=== PATIENT | female | born 1950 | race African-American/Black ===

== ENCOUNTER 2018-11-02 21:26 | Emergency (ER) | payer MEDICARE, OTHER ==
[~2018-11-02] VITALS: Ht 167.6 cm; Wt 72.6 kg
[2018-11-02] MEDS ORDERED: NKM (21:49)
--- NOTE | 2018-11-02 22:16 | Emergency Room Report ---
History of Present Illness General Chief Complaint: Lower Extremity Injury Source: Patient, Family Member Present Illness HPI Patient presents with left knee pain. She felt partially and hit in the shower 1 1/2 months ago. She had some mild pain there after the fall. She has been going to the spa and swimming to try to improve the pain. She's never seen a doctor for this problem. In the last 3-4 days she's had more swelling and increased pain there. She's been taking Tylenol it's not been helpful. The pain is rated 8/10, aching, not radiating. Somewhat more posteriorly (in popliteal fossa). She denies chest pain, abdominal pain, shortness of breath, fever or calf tenderness. No edema. Denies diabetes. H/O renal stones and hernia - denies flank pain or hematuria She has had decrease in her vision. She is followed at [facility] and no one has evaluated her for this. Allergies: Coded Allergies: No Known Allergies (Unverified , 11/02/18) Patient History Past Medical History: see triage record Social History: Denies: smoking, alcohol use, drug use Social History Narrative with daughter Last Menstrual Period: 3 decades ago Now: No Reviewed Nursing Documentation: PMH: Agreed; PSxH: Agreed Nursing Documentation-PMH Hx Gastrointestinal Problems: Yes - hernia Hx Neurological Problems: Yes - kidney stones, Review of Systems All Other Systems: negative except mentioned in HPI Physical Exam Vital Signs Date Time Temp Pulse Resp B/P (MAP) Pulse Ox O2 Delivery O2 Flow Rate FiO2 11/02/18 21:44 97.5 64 16 149/65 97 Room Air Sp02 EP Interpretation: reviewed, normal General Appearance: well appearing, no apparent distress, GCS 15 Head: normocephalic, atraumatic Eyes: bilateral eye PERRL, bilateral eye EOMI, bilateral eye other - cataracts bilat, arcus ENT: hearing grossly normal, normal voice, moist mucus membranes Neck: full range of motion, supple Respiratory: chest non-tender, lungs clear, normal breath sounds, no respiratory distress, speaking full sentences Cardiovascular #1: regular rate, rhythm, no edema Cardiovascular #2: 2+ radial (L), 2+ dorsalis pedis (L) Gastrointestinal: normal inspection, normal bowel sounds, non tender Genitourinary: no CVA tenderness Musculoskeletal: gait/station normal, normal range of motion, no calf tenderness, pelvis stable, swelling - L knee with intact ligaments, popliteal fossa with tenderness, but no mass felt, other - knee is not warm, DJD present Neurologic: alert, oriented x3, normal gait, grossly normal Psychiatric: mood/affect normal Skin: no rash Medical Decision Making Diagnostic Impression: Primary Impression: Contusion of left knee Qualified Codes: S80.02XA - Contusion of left knee, initial encounter Additional Impressions: Osteoarthritis Qualified Codes: M17.0 - Bilateral primary osteoarthritis of knee UTI (urinary tract infection) Qualified Codes: N30.00 - Acute cystitis without hematuria ER Course Patient with L knee pain post relatively distant trauma. Ddx: strain, gout/ pseudogout, Cleveland's cyst, DJD, septic joint, hairline fracture amongst others. Evaluation with xray and labs. Treatment with motrin. Xray with DJD. No fx. Labs with normal WBC, H/H. CMP with glu 144. Uric acid normal. (This does not exclude pseudogout.) UA with pyuria. Patient improved. Mynor applied by tech. Position and tension excellent. Distal neurovasc checked by me and normal. Discussed treatment plan. Patient stable for outpatient observation and treatment. (In addition, discussed cataracts with patient.) Laboratory Tests Test 11/02/18 23:42 White Blood Count 5.5 K/UL (4.8-10.8) Red Blood Count 4.97 M/UL (4.20-5.40) Hemoglobin 13.8 G/DL (12.0-16.0) Hematocrit 41.5 % (37.0-47.0) Mean Corpuscular Volume 84 FL (80-99) Mean Corpuscular Hemoglobin 27.7 PG (27.0-31.0) Mean Corpuscular Hemoglobin Concent 33.2 G/DL (32.0-36.0) Red Cell Distribution Width 11.5 % (11.6-14.8) L Platelet Count 170 K/UL (150-450) Mean Platelet Volume 11.4 FL (6.5-10.1) H Neutrophils (%) (Auto) 48.4 % (45.0-75.0) Lymphocytes (%) (Auto) 39.0 % (20.0-45.0) Monocytes (%) (Auto) 9.2 % (1.0-10.0) Eosinophils (%) (Auto) 2.2 % (0.0-3.0) Basophils (%) (Auto) 1.2 % (0.0-2.0) Urine Color Pale yellow Urine Appearance Cloudy Urine pH 5 (4.5-8.0) Urine Specific [place] 1.005 (1.005-1.035) Urine Protein Negative (NEGATIVE) Urine Glucose (UA) Negative (NEGATIVE) Urine Ketones Negative (NEGATIVE) Urine Blood Negative (NEGATIVE) Urine Nitrite Negative (NEGATIVE) Urine Bilirubin Negative (NEGATIVE) Urine Urobilinogen Normal MG/DL (0.0-1.0) Urine Leukocyte Esterase 3+ (NEGATIVE) H Urine RBC 2-4 /HPF (0 - 2) H Urine WBC Tntc /HPF (0 - 2) H Urine Squamous Epithelial Cells Moderate /LPF (NONE/OCC) H Urine Bacteria Moderate /HPF (NONE) H Urine Yeast Moderate /HPF (NONE) H Sodium Level 138 MMOL/L (136-145) Potassium Level 4.0 MMOL/L (3.5-5.1) Chloride Level 104 MMOL/L (98-107) Carbon Dioxide Level 27 MMOL/L (21-32) Anion Gap 8 mmol/L (5-15) Blood Urea Nitrogen 8 mg/dL (7-18) Creatinine 0.6 MG/DL (0.55-1.30) Estimate Glomerular Filtration Rate > 60 mL/min (>60) Glucose Level 144 MG/DL (74-106) H Uric Acid 4.3 MG/DL (2.6-7.2) Calcium Level 9.2 MG/DL (8.5-10.1) Total Bilirubin 0.3 MG/DL (0.2-1.0) Aspartate Amino Transferase (AST) 37 U/L (15-37) Alanine Aminotransferase (ALT) 44 U/L (12-78) Alkaline Phosphatase 124 U/L (46-116) H Total Protein 8.6 G/DL (6.4-8.2) H Albumin 3.6 G/DL (3.4-5.0) Globulin 5.0 g/dL Albumin/Globulin Ratio 0.7 (1.0-2.7) L Other X-Ray Diagnostic Results Other X-Ray Diagnostic Results : X-Ray ordered: L knee # of Views/Limited Vs Complete: 3 View Indication: Other EP Interpretation: Yes Interpretation: no dislocation, no fractures, other - effusion, DJD Impression: Other Electronically Signed by: Lawrence Christianson MD Last Vital Signs Date Time Temp Pulse Resp B/P (MAP) Pulse Ox O2 Delivery O2 Flow Rate FiO2 11/03/18 01:45 98.2 80 16 147/89 97 Room Air Status: improved Disposition: HOME, SELF-CARE Condition: Improved Scripts Nitrofurantoin Monohyd/M-Cryst* (MACROBID 100 MG*) 100 Mg Capsule 100 MG ORAL EVERY 12 HOURS, #14 CAP Prov: Lawrence Christianson MD 11/03/18 Acetaminophen (Tylenol) 325 Mg Tablet 650 MG ORAL Q6H PRN for Prn Pain/Headache/Temp > 101, #20 TAB 0 Refills Prov: Lawrence Christianson MD 11/03/18 Ibuprofen* (MOTRIN*) 600 Mg Tablet 600 MG ORAL Q6H PRN for For Pain, #20 TAB Prov: Lawrence Christianson MD 11/03/18 Lawrence Christianson MD Nov 02, 2018 22:16
--- NOTE | 2018-11-02 22:46 | Diagnostic Imaging Report ---
EXAM: XR Left Knee, 3 views CLINICAL HISTORY: PAIN TECHNIQUE: Three views of the left knee. COMPARISON: No relevant prior studies available. FINDINGS: Bones/joints: No acute fracture. Small effusion. Soft tissues: No radiodense foreign body. Soft tissue swelling. IMPRESSION: No acute fracture. Recommend short-term followup if symptoms persist
[2018-11-03 00:04] LABS: APPEARANCE,URINE CLOUDY; BILIRUBIN, URINE NEGATIVE (NEGATIVE); COLOR,URINE PALE YELLOW; GLUCOSE, URINE (UA) NEGATIVE (NEGATIVE); KETONES,URINE NEGATIVE (NEGATIVE); LEUKOCYTE ESTERASE ,URINE 3+ (NEGATIVE); NITRITE,URINE NEGATIVE (NEGATIVE); PH,URINE 5 (4.5-8.0); PROTEIN,URINE NEGATIVE (NEGATIVE); UROBILINOGEN,URINE NORMAL MG/DL (0.0-1.0)
[2018-11-03 00:15] LABS: ANION GAP 8 mmol/L (5-15); BASOPHILS % (AUTO) 1.2 % (0.0-2.0); BLOOD UREA NITROGEN 8 mg/dL (7-18); CALCIUM 9.2 MG/DL (8.5-10.1); CARBON DIOXIDE 27 MMOL/L (21-32); CHLORIDE 104 MMOL/L (98-107); CREATININE 0.6 MG/DL (0.55-1.30); EOSINOPHILS % (AUTO) 2.2 % (0.0-3.0); HEMATOCRIT 41.5 % (37.0-47.0); HEMOGLOBIN 13.8 G/DL (12.0-16.0); MEAN CORPUSCULAR VOLUME 84 FL (80-99); MONOCYTES % (AUTO) 9.2 % (1.0-10.0); NEUTROPHILS % (AUTO) 48.4 % (45.0-75.0); PLATELET COUNT 170 K/UL (150-450); RED BLOOD COUNT 4.97 M/UL (4.20-5.40); RED CELL DISTRIBUTION WIDTH 11.5 % (11.6-14.8); SODIUM 138 MMOL/L (136-145); WHITE BLOOD COUNT 5.5 K/UL (4.8-10.8)
[2018-11-03 00:25] LABS: ALANINE AMINOTRANSFERASE 44 U/L (12-78); ALBUMIN 3.6 G/DL (3.4-5.0); ALBUMIN/GLOBULIN RATIO 0.7 (1.0-2.7); ALKALINE PHOSPHATASE 124 U/L (46-116); ASPARTATE AMINO TRANSFERASE 37 U/L (15-37); BILIRUBIN,TOTAL 0.3 MG/DL (0.2-1.0)
[2018-11-03] MEDS ORDERED: TYLENOL325 MG ORAL (01:29)
[2018-11-03] MEDS ORDERED: IBUPROFEN600 MG ORAL (01:29)
[2018-11-03] MEDS ORDERED: NITROFURANTOIN100 M2 ORAL (01:34)
[2018-11-03 01:45] VITALS: BP 147/89
== END 2018-11-03 01:45 | disposition home or self-care (01) ==
LOC: EMR 22:00
DX: S80.02XA Contusion of left knee, initial encounter (principal); W19.XXXA Unspecified fall, initial encounter; Y92.9 Unspecified place or not applicable; N39.0 Urinary tract infection, site not specified; Z87.442 Personal history of urinary calculi
CPT/HCPCS: 36415; 80053; 81003; 84550; 85025; 87086; 99284